=== PATIENT | male | born 1980 | race Caucasian/White ===

== ENCOUNTER 2020-07-11 10:29 | Emergency (ER) | payer SELFPAY ==
[~2020-07-11] VITALS: Ht 185.4 cm; Wt 102.1 kg
== END 2020-07-11 11:20 | disposition home or self-care (01) ==
LOC: ED 10:29
DX: M54.5 Low back pain (principal)

== ENCOUNTER 2020-07-15 06:14 | Emergency (ER) | payer SELFPAY ==
[~2020-07-15] VITALS: Ht 185.4 cm; Wt 102.1 kg
[2020-07-15 06:56] LABS: BASO # 0.1 10*3/uL (0.0-0.1); BASO % 0.9 % (0.0-1.0); EOS # 0.1 10*3/uL (0.0-0.4); EOS % 1.7 % (1.0-4.0); HEMATOCRIT 46.6 % (42.0-52.0); LYMPH # 2.8 10*3/uL (1.3-4.4); MEAN CELL VOLUME 87.4 fl (80.0-94.0); MEAN CORPUSCULAR HGB 29.3 pg (27.0-31.0); MEAN CORPUSCULAR HGB CONC 33.5 g/dl (33.0-37.0); MEAN PLATELET VOLUME 9.5 fl (9.6-12.3); MONO # 0.8 10*3/uL (0.1-1.0); MONO % 10.8 % (3.0-9.0); NEUT # 3.7 10*3/uL (2.3-7.9); NEUT % 49.3 % (47.0-73.0); PLATELET COUNT AUTOMATED 311 10*3/uL (130-400); RED BLOOD COUNT 5.33 10*6/uL (4.50-5.90); RED CELL DISTRI WIDTH 12.2 % (0-14.5); WHITE BLOOD COUNT 7.5 10*3/uL (4.8-10.8)
[2020-07-15 07:11] LABS: ALBUMIN 4.2 gm/dl (3.1-4.5); ALKALINE PHOSPHATASE 68 U/L (45-117); BUN 12 mg/dl (7-24); CHLORIDE 108 mmol/L (98-107); CREATININE 1.17 mg/dL (0.70-1.30); POTASSIUM 4.1 mmol/L (3.5-5.1); SGOT/AST 17 IU/L (3-35); SGPT/ALT 37 U/L (12-78); SODIUM 140 mmol/L (136-145); TOTAL PROTEIN 7.7 gm/dL (6.4-8.2)
[2020-07-15 07:55] LABS: BILIRUBIN Negative (Negative); BLOOD Negative (Negative); CLARITY Clear (Clear); COLOR Yellow (Yellow); GLUCOSE Negative (Negative); KETONE Trace (Negative); LEUKO ESTERASE Negative (Negative); NITRITE Negative (Negative); PH 5.5 (4.5-8.0); SPECIFIC GRAVITY >= 1.030 (1.001-1.030)
[2020-07-15 08:19] LABS: MUCOUS 1+; RBC 0-2 rbc/hpf (0-2); WBC 0-2 wbc/hpf (0-5)
[2020-07-15] MEDS ORDERED: PREDNISONE50 MG PO (08:25)
== END 2020-07-15 08:46 | disposition home or self-care (01) ==
LOC: ED 06:14
PROVIDERS: Emergency Medicine
DX: M54.5 Low back pain (principal); G89.29 Other chronic pain

== ENCOUNTER → 2021-05-05 | Outpatient (CLI) | payer SELFPAY ==
[~2021-05-05] MED LIST: PREDNISONE50 MG PO
== END | disposition home or self-care (01) ==
LOC: RESCLI 11:30
PROVIDERS: ATTEND Student in an Organized Health Care Education/Training Program
DX: F31.9 Bipolar disorder, unspecified (principal); F41.9 Anxiety disorder, unspecified; Z72.0 Tobacco use; Z71.6 Tobacco abuse counseling; Z87.39 Personal history of other diseases of the musculoskeletal system and connective tissue; Z79.899 Other long term (current) drug therapy; Z98.890 Other specified postprocedural states

== ENCOUNTER 2021-06-10 07:51 | Emergency (ER) | payer OTHER ==
[~2021-06-10] VITALS: Wt 81.6 kg
[2021-06-10] MEDS ORDERED: AVPAK AZITHROM250 M1 PO (08:51)
[2021-06-10] MEDS ORDERED: FLONASE ALLERG9.9 ML NAS (08:51)
== END 2021-06-10 09:00 | disposition home or self-care (01) ==
LOC: ED 07:51
DX: J32.9 Chronic sinusitis, unspecified (principal)